=== PATIENT | male | born 1990 | race Caucasian/White ===

== ENCOUNTER 2017-06-02 12:19 | Emergency (ER) | payer MEDICAID ==
[2017-06-02 13:44] LABS: ALBUMIN 3.9 g/dL (3.4-5.0); ALKALINE PHOSPHATASE 71 U/L (46-116); ALT (SGPT) 38 U/L (10-68); CALC OSMOLALITY 278 mosm/kg (275-300); CALCIUM 8.8 mg/dL (8.5-10.1); CHLORIDE - SERUM 104 mmol/L (98-107); CREATININE - SERUM 0.7 mg/dL (0.6-1.3); GLUCOSE 93 mg/dL (74-106); POTASSIUM - SERUM 4.3 mmol/L (3.5-5.1); SODIUM 139 mmol/L (136-145); UREA NITROGEN 15 mg/dL (7-18); eGFR NON AFRICAN AMERICAN > 90 mL/min (90-120)
[2017-06-02 13:59] LABS: CKMB 0.6 U/L (0.0-3.6); CREATINE KINASE 125 UL (21-232); TROPONIN-I < 0.017 ng/mL (0.000-0.060)
[2017-06-02 14:01] LABS: BASOPHILS 0.4 % (0-2); EOSINOPHILS 4.1 % (0-7); HEMATOCRIT 43.7 % (42.0-54.0); HEMOGLOBIN 15.2 g/dL (13.5-17.5); IMMATURE GRANULOCYTES 1.2 % (0-5); LYMPHOCYTES 27.8 % (15-50); MCH 30.8 pg (26.0-34.0); MCHC 34.8 g/dL (31.0-37.0); MCV 88.5 fL (80.0-100.0); MONOCYTES 6.7 % (2-11); NEUTROPHILS 59.8 % (40-80); PLATELET COUNT 241 10x3/uL (130-400); RBC 4.94 10x6/uL (4.20-6.10); RDW 12.3 % (11.5-14.5); WBC 8.3 10x3/uL (4.8-10.8)
== END 2017-06-02 14:30 | disposition home or self-care (01) ==
LOC: D.ER 12:19
PROVIDERS: Family Medicine
DX: R07.89 Other chest pain (principal)